=== PATIENT | female | born 1940 | race American Indian/Alaskan Native ===

== ENCOUNTER 2020-12-16 21:25 | Emergency (ER) | payer MEDICARE, BC, OTHER ==
--- NOTE | 2020-12-16 22:55 | EDM.PDOC ---
ED HPI GENERAL MEDICAL PROBLEM - General Stated Complaint: FALL OF HER RIGHT SIDE OF RIBS AREA PER PT Time Seen by Provider: 12/17/20 00:23 Source of Information: Reports: Patient, RN, RN Notes Reviewed History Limitations: Reports: No Limitations - History of Present Illness INITIAL COMMENTS - FREE TEXT/NARRATIVE: Iain is an 80 y/o female with a history of breast cancer who presents to the ED via personal vehicle complaints of right lateral rib pain. The patient reports she fell onto her right side, onto a curb while exiting her vehicle earlier today. She denies loss of consciousness and did not strike her head; she not currently on blood thinners but has been in the past. The patient states she was pain free throughout the day, however noted 10/10 pain to her right anterior chest when she went to lay down for bed. She notes the pain improves when she is erect. She denies history of rib fracture. Chest Pain Score (Numeric/FACES): 10 - Related Data Allergies Allergy/AdvReac Type Severity Reaction Status Date / Time acetaminophen [From Percocet] Allergy Confusion Verified 12/17/20 01:10 oxycodone [From Percocet] Allergy Confusion Verified 12/17/20 01:10 ED ROS GENERAL - Review of Systems Review Of Systems: Comprehensive ROS is negative, except as noted in HPI. ED EXAM, GENERAL - Physical Exam Exam: See Below Exam Limited By: No Limitations General Appearance: Alert, No Apparent Distress Eye Exam: Bilateral Eye: EOMI, Normal Inspection Ears: Normal External Exam, Hearing Grossly Normal Nose: Normal Inspection, No Blood Throat/Mouth: Normal Inspection, Normal Oropharynx, Normal Voice, No Airway Compromise Head: Atraumatic, Normocephalic Neck: Normal Inspection, Full Range of Motion Respiratory/Chest: No Respiratory Distress, Lungs Clear, Normal Breath Sounds, No Accessory Muscle Use, Other (s/p left mastectomy). No: Chest Non-Tender (Tender to palpation of anterior chest), Crackles, Rales, Rhonchi, Wheezing, Stridor Cardiovascular: Normal Peripheral Pulses, Regular Rate, Rhythm, No Edema, No Gallop, No JVD, No Rub, Systolic Murmur (Holosystolic, greatest over the pulmonic area; No radiation into carotids) Peripheral Pulses: 2+: Radial (L), Radial (R) GI/Abdominal: Normal Bowel Sounds, Soft, Non-Tender (Female) Exam: Deferred Rectal (Female) Exam: Deferred Back Exam: Normal Inspection, Full Range of Motion. No: Paraspinal Tenderness, Vertebral Tenderness Extremities: Normal Range of Motion, Non-Tender, No Pedal Edema, Normal Capillary Refill, Arm Pain (2cm x 3cm skin tear to right posterior forearm) Neurological: Alert, Oriented, CN II-XII Intact, Normal Cognition, Normal Gait, No Motor/Sensory Deficits Psychiatric: Normal Affect, Normal Mood Skin Exam: Warm, Dry, Intact, Normal Color, No Rash, Ecchymosis (Surrounding skin tear to right posterior forearm), Wound/Incision (See above). No: Cyanosis, Erythema, Jaundice, Mottled, Pallor, Petechiae Lymphatic: No Adenopathy Course - Vital Signs Last Recorded V/S: Last Vital Signs Temp 97 F 12/16/20 22:54 Pulse 86 12/16/20 22:54 Resp 18 12/16/20 22:54 BP 170/97 H 12/16/20 22:54 Pulse Ox 97 12/16/20 22:54 - Orders/Labs/Meds Meds: Medications Discontinued Medications Generic Name Dose Route Start Last Admin Trade Name Freq PRN Reason Stop Dose Admin Tramadol HCl 50 mg 12/17/20 01:21 12/17/20 01:41 Tramadol 50 Mg Tab PO 12/17/20 01:22 50 mg ONETIME ONE Administration - Radiology Interpretation Free Text/Narrative:: [facility] Final Radiology Report with Addendum Call: [phone] assistance Online chat: [email or web address] Name: IAIN MATTHEWS Age: 80Years F Date: 12/16/2020 SSN: -- : 1940 Study: CR RIBS 2V W CHEST RT Requesting Physician: Raquel Zepeda Images: 3 Addl Studies: Provided Clinical History: Fall onto right anterior side Contrast: Contrast Medium: Contrast Amount: Contrast Method: Page 1 of 2 Addendum created by Jefferson Morrell MD on 12/17/2020 12:34 AM Central Time ([place] & [place]): Results of this exam were communicated by phone to Raquel Zepeda at12/16/2020 10:52 PM with the recieving practioner acknowleging understanding of exam results. The patient is extremely tender and a CT scan will be obtained to rule out an occult rib fracture Initial Report created on 12/17/2020 12:17 AM Central Time ([place] & [place]): PROCEDURE INFORMATION: Exam: XR Right Ribs with PA Chest Exam date and time: 12/16/2020 10:52 PM Age: 80 years old Clinical indication: Other: Fall--low right rib pain; Additional info: Fall onto right anterior side TECHNIQUE: Imaging protocol: XR Right ribs with PA chest. Views: 3 views COMPARISON: No relevant prior studies available. FINDINGS: Lungs: Unremarkable. No consolidation. Pleural spaces: Unremarkable. No pleural effusion. No pneumothorax. Heart/Mediastinum: Unremarkable. No cardiomegaly. Bones/joints: Unremarkable. IMPRESSION: No acute findings. Thank you for allowing us to participate in the care of your patient. Dictated and Authenticated by: Jefferson Morrell MD 12/17/2020 12:17 AM Central Time ( & [place]) [facility] Final Radiology Report Call: [phone] assistance Online chat: [email or web address] Name: IAIN MATTHEWS Age: 80Years F Date: 12/17/2020 SSN: -- : 1940 Study: CT CHEST WO CONT Requesting Physician: Raquel Zepeda Images: 286 Addl Studies: Provided Clinical History: r/o rib fracture following fall Contrast: Without Contrast Medium: Contrast Amount: Contrast Method: Page 1 of 2 PROCEDURE INFORMATION: Exam: CT Chest Without Contrast; Diagnostic Exam date and time: 12/17/2020 12:54 AM Age: 80 years old Clinical indication: Other: Fall--right rib pain; Additional info: R/O rib f racture following fall TECHNIQUE: Imaging protocol: Diagnostic computed tomography of the chest without contrast. Radiation optimization: All CT scans at this facility use at least one of these dose optimization techniques: automated exposure control; mA and/or kV adjustment per patient size (includes targeted exams where dose is matched to clinical indication); or iterative reconstruction. COMPARISON: CR Ribs 2V w Chest Rt 12/16/2020 10:52 PM FINDINGS: Lungs: Unremarkable. No consolidation. No masses. Pleural spaces: There is no hematoma or pneumothorax. Heart: Unremarkable. No cardiomegaly. No pericardial effusion. Aorta: Unremarkable. No aortic aneurysm. Lymph nodes: Unremarkable. No enlarged lymph nodes. Bones/joints: There is an acute nondisplaced fracture of the anterior cartilage of the 9th and 10th ribs anteriorly. Soft tissues: Unremarkable. IMPRESSION: 1. Acute nondisplaced fractures of the anterior cartilage of the 9th and 10th ribs anteriorly. This is best seen coronal images series 4 image 10 through 13. 2. No pneumothorax or pulmonary contusion Thank you for allowing us to participate in the care of your patient. Dictated and Authenticated by: Jefferson Morrell MD 12/17/2020 1:11 AM Central Time ([place] & [place]) - Re-Assessments/Exams Free Text/Narrative Re-Assessment/Exam: 12/17/20 CXR obtained to r/o rib fracture. CXR read as not acute findings, reviewed with Dr. Morrell, radiologist for [facility]. He recommends CT chest to definitively r/o fracture. Findings of examination and imaging reviewed with patient. Will treat acute rib fracture with tramadol and IS. Supportive cares for rib fracture discussed. Patient instructed to follow up with primary care provider regarding today's visit, including systolic murmur. Red flag signs and symptoms which would warra nt reevaluation reviewed. Patient verbalized understanding and agreement with the plan of care. Departure - Departure Time of Disposition: 01:17 Disposition: Home, Self-Care 01 Condition: Fair Clinical Impression: Heart murmur, systolic, Skin tear Ribs, multiple fractures Qualifiers: Encounter type: initial encounter Fracture type: closed Laterality: right Qualified Code(s): S22.41XA - Multiple fractures of ribs, right side, initial encounter for closed fracture - Discharge Information *PRESCRIPTION DRUG MONITORING PROGRAM REVIEWED*: Not Applicable *COPY OF PRESCRIPTION DRUG MONITORING REPORT IN PATIENT GRACE: Not Applicable Instructions: Rib Fracture, [id number] Forms: ED Department Discharge Additional Instructions: Rx: tramadol 1.) Perform your incentive spirometer exercises 10 times every hour, while awake. 2.) You may apply ice compresses to the affected area, as pain persists; 20 minutes per hour. 3.) Follow up with your primary care provider in 3-5 days regarding today's visit, including rib fractures and heart murmur; sooner should symptoms worsen despite medications. 4.) Keep skin tear covered with dressing. You can obtain the Mepilex dressing at any pharmacy or box-store ([employer]).
--- NOTE | 2020-12-17 00:17 | CR ---
PROCEDURE INFORMATION: Exam: XR Right Ribs with PA Chest Exam date and time: 12/16/2020 10:52 PM Age: 80 years old Clinical indication: Other: Fall--low right rib pain; Additional info: Fall onto right anterior side TECHNIQUE: Imaging protocol: XR Right ribs with PA chest. Views: 3 views COMPARISON: No relevant prior studies available. FINDINGS: Lungs: Unremarkable. No consolidation. Pleural spaces: Unremarkable. No pleural effusion. No pneumothorax. Heart/Mediastinum: Unremarkable. No cardiomegaly. Bones/joints: Unremarkable. IMPRESSION: No acute findings.
--- NOTE | 2020-12-17 01:12 | CT ---
PROCEDURE INFORMATION: Exam: CT Chest Without Contrast; Diagnostic Exam date and time: 12/17/2020 12:54 AM Age: 80 years old Clinical indication: Other: Fall--right rib pain; Additional info: R/O rib fracture following fall TECHNIQUE: Imaging protocol: Diagnostic computed tomography of the chest without contrast. Radiation optimization: All CT scans at this facility use at least one of these dose optimization techniques: automated exposure control; mA and/or kV adjustment per patient size (includes targeted exams where dose is matched to clinical indication); or iterative reconstruction. COMPARISON: CR Ribs 2V w Chest Rt 12/16/2020 10:52 PM FINDINGS: Lungs: Unremarkable. No consolidation. No masses. Pleural spaces: There is no hematoma or pneumothorax. Heart: Unremarkable. No cardiomegaly. No pericardial effusion. Aorta: Unremarkable. No aortic aneurysm. Lymph nodes: Unremarkable. No enlarged lymph nodes. Bones/joints: There is an acute nondisplaced fracture of the anterior cartilage of the 9th and 10th ribs anteriorly. Soft tissues: Unremarkable. IMPRESSION: 1. Acute nondisplaced fractures of the anterior cartilage of the 9th and 10th ribs anteriorly. This is best seen coronal images series 4 image 10 through 13. 2. No pneumothorax or pulmonary contusion
[2020-12-17] MEDS ORDERED: traMADol 50 MG Tab PO ONE (01:21)
== END 2020-12-17 01:40 | disposition home or self-care (01) ==
LOC: DL.ED 21:25
DX: S22.41XA Multiple fractures of ribs, right side, initial encounter for closed fracture (principal); S51.811A Laceration without foreign body of right forearm, initial encounter; R01.1 Cardiac murmur, unspecified; Z88.5 Allergy status to narcotic agent; Z88.8 Allergy status to other drugs, medicaments and biological substances; W18.39XA Other fall on same level, initial encounter
CPT/HCPCS: 71101; 71250; 99284; A9270